=== PATIENT | male | born 1995 | race Caucasian/White ===

== ENCOUNTER 2017-03-07 11:44 | Day surgery (SDC) | payer BC ==
[2017-03-06 13:12] VITALS: BMI 28.3
[2017-03-07] MEDS ORDERED: BUPIVACAINE HCL/PF 0.5% (5MG/ML) 10 ML VIAL ONE (13:22)
[2017-03-07] MEDS ORDERED: ROCURONIUM BROMIDE 50 MG/5 ML VIAL ONE (13:33)
[2017-03-07] MEDS ORDERED: MIDAZOLAM HCL 2 MG/2 ML SINGLE DOSE VIAL ONE (13:33)
[2017-03-07] MEDS ORDERED: ceFAZolin SODIUM 1 GM VIAL IVPB ONE (14:20)
[2017-03-07] MEDS ORDERED: PROPOFOL 20 ML ONE (14:28)
[2017-03-07] MEDS ORDERED: NEOSTIGMINE METHYLSULFATE 0.5 MG/ML - 10 ML MDV ONE (15:36)
[2017-03-07] MEDS ORDERED: GLYCOPYRROLATE 0.2 MG/1 ML VIAL ONE (15:42)
--- NOTE | 2017-03-07 16:01 | HP ---
History & Physical Update - History History: No Change - Physical Physical: No Change - Assessment Assessment: No Change - Plan Plan: No Change (Robotic left inguinal hernia repair with mesh possible open)
--- NOTE | 2017-03-07 16:03 | OP ---
Operative Note - Note: Operative Date: 03/07/17 Pre-Operative Diagnosis: Left inguinal hernia Operation: Robotic left inguinal hernia repair with mesh Findings: Direct and indirect hernia defects Post-Operative Diagnosis: Same as Pre-op Surgeon: Chang Wong Cage Unloader: Keesha Packer Anesthesia: General Specimens Removed: None Estimated Blood Loss (mls): 5 Operative Report Dictated: Yes
[2017-03-07] MEDS ORDERED: ONDANSETRON 4 MG/2 ML VIAL ONE (16:04)
[2017-03-07] MEDS ORDERED: ONDANSETRON 4 MG/2 ML VIAL IVPB ONE (16:15)
--- NOTE | 2017-03-07 16:16 | SURG ---
Surgery Business Continuity Planning Director Note Business Continuity Planning Director: Keesha Packer PA-C Date of Service: 03/07/17 Diagnosis: Left inguinal hernia Procedure: Robotic left inguinal hernia repair with mesh I was present for the entirety of the operative procedure. For further detail, please refer to operative report. Visit type - Case Type Case Type: Scheduled Admission
[2017-03-07] MEDS ORDERED: oxyCODONE HCL 5 MG TABLET PO PRN (16:25)
[2017-03-07] MEDS ORDERED: ONDANSETRON 4 MG/2 ML VIAL IVPUSH PRN (16:25)
[2017-03-07] MEDS ORDERED: PROMETHAZINE HCL 25 MG/1 ML VIAL IVPUSH PRN (16:25)
[2017-03-07] MEDS ORDERED: LACTATED RINGERS SOLUTION 1,000 ML IV SCH (16:30)
[2017-03-07] MEDS ORDERED: oxyCODONE HCL 5 MG TABLET ONE (17:46)
[2017-03-07 18:57] VITALS: TEMP 98
[2017-03-07 19:41] VITALS: BP 136/69; PULSE 79
--- NOTE | 2017-03-08 18:13 | SPEC ---
DATE OF OPERATION: 03/07/2017 SURGEON: Clare Wong M.D. LIFT SLAB OPERATOR: Alejandra Escudero PREOPERATIVE DIAGNOSIS: Left inguinal hernia. POSTOPERATIVE DIAGNOSIS: Left inguinal hernia. Direct and indirect hernia defects. PROCEDURE: Robotic left inguinal hernia repair with mesh . SPECIMENS: None. ESTIMATED BLOOD LOSS: 5 mL. DRAINS: None. ANESTHESIA: GT. REASON FOR THE PROCEDURE: This is a 22-year-old gentleman who presented to the office for evaluation of left groin pain. On exam, he is found to have a left inguinal hernia . He was consented for a robotic possible open left inguinal hernia repair with mesh after discussing risks and options. RISKS AND BENEFITS: The risks and benefits of a Robotic, possible open left inguinal hernia repair, possible bilateral inguinal hernia repair with mesh were explained. These included bleeding, infection, recurrence of hernia, PA, DVT, PE, new hernia, mesh infection, injury to surrounding structures, including the colon, bowel, bladder, ureter, spermatic cord, spermatic vessels, vas deferens, vessel injury, nerve injury, testicular injury, including testicular atrophy and possible testicular loss, and as some of the possible complications. The patient understood and signed informed consent. DESCRIPTION OF PROCEDURE: The patient was placed supine on the operating table. The patient underwent general endotracheal intubation. A Juan catheter was inserted. The arms were tucked at the side and he was placed on a beanbag device. The abdomen was prepped and draped in the usual sterile fashion. A time-out was performed. A periumbilical incision was made and entrance into the abdominal cavity was obtained using an 8-mm robotic optical trocar under direct visualization with the laparoscope. Pneumoperitoneum was established. Subsequently, 2 additional 8-mm trocars were placed, one approximately 6 to 7 cm to the left of the umbilicus and one 6 to 7 cm to the right of the umbilicus. The patient was placed in steep Trendelenburg [id number] position. The robot was brought over the field and docked. Dissection was performed at the console. The peritoneum was opened using robotic Endo Deedee. The preperitoneal space over the left inguinal region was dissected. The epigastric vessels were identified and dissected toward the anterior abdominal wall. Dissection in the preperitoneal space was continued from the medial umbilical ligament towards the anterior-superior iliac spine. Medially, dissection was performed until Genaro's ligament and the pubis were identified. Lateral to this, the spermatic cord structures, including the vas deferens, were identified. The contents of the hernia sac were identified and dissected down to the retroperitoneum. At this point, hemostasis was identified. Again, all of the hernia content was noted to be completely dissected and noted to have no retraction back to its original position. A Symbotex mesh was then chosen, irrigated and inserted into the abdominal cavity to cover the entire myopectineal orifice. The mesh was secured medially at the pubis and superolaterally to the abdominal wall with sutures. The mesh was noted to be in good position. The hernia was again noted to be fully reduced and without any tension. At this point, the peritoneal flap was closed using a 2-0 V-Loc suture. Again, hemostasis was identified. All needles were removed from the field and the count was confirmed to be correct. The robotic instruments were removed. The robot was undocked and removed from the operative field. The patient was placed supine. Pneumoperitoneum was desufflated. All trocars were removed. All incision sites were irrigated and Marcaine was injected in all incision sites. Hemostasis was noted at all incision sites. All incision sites were closed using 4-0 Biosyn. Sterile dressings were applied. The Juan catheter was removed. The patient tolerated the procedure well and was transferred to the recovery room in stable condition. CLARE WONG M.D. 1 [id number]
== END 2017-03-07 19:41 | disposition home or self-care (01) ==
LOC: JASU-SURG 11:44
PROVIDERS: ATTEND Surgery
PROC: 8E0W4CZ Robotic Assisted Procedure of Trunk Region, Percutaneous Endoscopic Approach (ICD-10-PCS; 2017-03-07)
PROC: 0YU64JZ Supplement Left Inguinal Region with Synthetic Substitute, Percutaneous Endoscopic Approach (ICD-10-PCS; principal; 2017-03-07 13:00)
DX: K40.90 Unilateral inguinal hernia, without obstruction or gangrene, not specified as recurrent (principal)
CPT/HCPCS: 49650; S2900; 94760

== ENCOUNTER 2017-08-30 22:16 | Emergency (ER) | payer BC ==
[2017-08-30 22:22] VITALS: BP 133/68; PULSE 96; TEMP 98.8; BMI 29.0
--- NOTE | 2017-08-30 22:25 | PDOC ---
Rapid Medical Evaluation Chief Complaint: Injury Time Seen by Provider: 08/30/17 22:23 Medical Evaluation: Allergies Allergy/AdvReac Type Severity Reaction Status Date / Time No Known Drug Allergies Allergy Verified 03/07/17 12:23 Vital Signs Temp Pulse Resp BP Pulse Ox 98.8 F 96 H 18 133/68 98 08/30/17 22:20 08/30/17 22:20 08/30/17 22:20 08/30/17 22:20 08/30/17 22:20 Pt presents with complaint of : left ankle dislocation while playing basketball. " i felt it pop back in" c/o pain to left ankle now. On brief exam: Patient alert ox3, VSS, limited rom to left ankle I have ordered the following: xray Pt will go to the Emergency Dept for further workup 08/30/17 22:24
--- NOTE | 2017-08-31 00:38 | PDOC ---
History of Present Illness <Weston Chaudhry - Last Filed: 08/31/17 01:37> - General History Source: Patient - History of Present Illness Initial Comments: 08/31/17 00:38 22M present with 10/10 left ankle and leg pain after trauma while playing basketball. Patient was decribes the mechanism of injury as follows: he planted right foot down bur the momentum of his body upon the inertia of his lateral tendon caused it to break apart the fibula at the attachment site. 08/31/17 05:56 <Domingo Camacho - Last Filed: 08/31/17 06:06> - General Chief Complaint: Injury Stated Complaint: ANKLE INJURY Time Seen by Provider: 08/30/17 22:23 Past History <Weston Chaudhry Filed: 08/31/17 01:37> - Past Medical History Anemia: No Asthma: No Cancer: No Cardiac Disorders: No CVA: No COPD: No CHF: No Dementia: No Diabetes: No GI Disorders: No Disorders: No HTN: No Hypercholesterolemia: No Liver Disease: No Seizures: No Thyroid Disease: No - Surgical History Abdominal Surgery: No Appendectomy: No Cardiac Surgery: No Cholecystectomy: No Lung Surgery: No Neurologic Surgery: No Orthopedic Surgery: No - Suicide/Smoking/Psychosocial Hx Smoking History: Never smoked Have you smoked in the past 12 months: No Information on smoking cessation initiated: No Hx Alcohol Use: No Drug/Substance Use Hx: No Substance Use Type: None <Domingo Camacho Filed: 08/31/17 06:06> - Past Medical History Allergies/Adverse Reactions: Allergies Allergy/AdvReac Type Severity Reaction Status Date / Time No Known Drug Allergies Allergy Verified 03/07/17 12:23 Home Medications: Ambulatory Orders Ibuprofen 400 mg PO PRN PRN 01/01/12 Docusate Sodium [Colace -] 100 mg PO TID #90 capsule 03/07/17 Oxycodone HCl/Acetaminophen [Percocet 5-325 mg Tablet] 1 - 2 tab PO Q6H #28 tab MDD 4 03/07/17 Review of Systems - Review of Systems Able to Perform ROS?: Yes Is the patient limited Kenyan proficient: No Constitutional: No: Symptoms Reported HEENTM: No: Symptoms Reported Respiratory: No: Symptoms reported Cardiac (ROS): No: Symptoms Reported ABD/GI: No: Symptoms Reported : No: Symptoms Reported Musculoskeletal: Yes: Joint Swelling (left anfle), Muscle Pain Integumentary: No: Symptoms Reported Neurological: No: Symptoms reported <Domingo Camacho - Last Filed: 08/31/17 06:06> *Physical Exam - Vital Signs Last Vital Signs Temp Pulse Resp BP Pulse Ox 98.8 F 96 H 18 133/68 98 08/30/17 22:20 08/30/17 22:20 08/30/17 22:20 08/30/17 22:20 08/30/17 22:20 <Weston Chaudhry - Last Filed: 08/31/17 01:37> - Vital Signs Last Vital Signs Temp Pulse Resp BP Pulse Ox 98.8 F 96 H 18 133/68 98 08/30/17 22:20 08/30/17 22:20 08/30/17 22:20 08/30/17 22:20 08/30/17 22:20 - Physical Exam General Appearance: Yes: Nourished, Appropriately Dressed. No: Apparent Distress HEENT: positive: EOMI, JESSE, Normal ENT Inspection Neck: positive: Trachea midline, Normal Thyroid. negative: Tender Respiratory/Chest: positive: Lungs Clear, Normal Breath Sounds. negative: Chest Tender Cardiovascular: positive: Regular Rhythm, Regular Rate, S1, S2 Vascular Pulses: Dorsalis-Pedis (R): 2+, Doralis-Pedis (L): 2+ Gastrointestinal/Abdominal: positive: Normal Bowel Sounds, Flat, Soft. negative : Tender Musculoskeletal: negative: Decreased Range of Motion Extremity: positive: Normal Capillary Refill, Tender, Cyanosis, Pedal Edema, Swelling, Calf Tenderness. negative: Normal Range of Motion Integumentary: positive: Normal Color, Dry, Warm Neurologic: positive: director of slot operations II-XII NML intact, Fully Oriented, Alert, Normal Mood/ Affect, Normal Response, Motor Strength 5/5 <Domingo Camacho - Last Filed: 08/31/17 06:06> Procedures - Splinting Splint Location: Left: Ankle Pre-Proc Neuro Vasc Exam: normal Hand-Made Type: orthoglass Splint Type: Yes: Sugar Tong Post-Proc Neuro Vasc Exam: normal, unchanged from pre-exam Hakeem Bandage: 6" Complications: No Post splint xray: No <Domingo Camacho - Last Filed: 08/31/17 06:06> ED Treatment Course - Medications Given in the ED: ED Medications Discontinued Medications Generic Name Dose Route Start Last Admin Trade Name Luiz PRN Reason Stop Dose Admin Oxycodone/Acetaminophen 2 combo 08/31/17 00:39 08/31/17 00:50 Percocet 5/325 - PO 08/31/17 00:40 2 combo ONCE ONE Administration <Weston Chaudhry - Last Filed: 08/31/17 01:37> Medical Decision Making - Medical Decision Making 08/31/17 06:05 sugar tong splint placed percocet for pain crutches and orthopedic surgery referred for outpatient follow up. <Domingo Camacho - Last Filed: 08/31/17 06:06> *DC/Admit/Observation/Transfer <Weston Chaudhry - Last Filed: 08/31/17 01:37> - Discharge Dispostion Admit: No <Domingo Camacho - Last Filed: 08/31/17 06:06> Diagnosis at time of Disposition: Fracture of distal fibula - Discharge Dispostion Disposition: HOME - Referrals Referrals: Keny Freeman MD [Staff Physician] - Garth Sheth MD [Primary Care Provider] - - Patient Instructions Printed Discharge Instructions: Fracture, DI for Ankle Fracture Additional Instructions: Keep your leg in the splint at all times. Avoid bearing weight on your left leg , and use the crutches to get around. Call the number provided to make an appointment with an orthopedic surgeon within 1 week. If you experience worsening pain, swelling, numbness, or any other concerning symptoms, return to the ER immediately. - Post Discharge Activity
--- NOTE | 2017-08-31 01:37 | PDOC ---
Attending Attestation - Resident Resident Name: JaniceDomingo - ED Attending Attestation I have performed the following: I have examined & evaluated the patient, The case was reviewed & discussed with the resident, I agree w/resident's findings & plan, Exceptions are as noted - HPI HPI: 08/31/17 01:35 22 M with no PMH presents to ER with L ankle injury. Pt was playing basketball when he tripped and turned his ankle. He reports hearing a pop with immediate pain. Fell to ground without headstrike/LOC. Now complains of pain and swelling in L ankle with difficulty bearing weight. No other injury. - Physicial Exam PE: 08/31/17 01:36 "GENERAL: Awake, alert, and fully oriented, in no acute distress HEAD: No signs of trauma EYES: PERRLA, EOMI, sclera anicteric, conjunctiva clear ENT: Auricles normal inspection, hearing grossly normal, nares patent, oropharynx clear without exudates. Moist mucosa NECK: Nontender, no stepoffs, Normal ROM, supple, no lymphadenopathy, JVD, or masses LUNGS: Breath sounds equal, clear to auscultation bilaterally. No wheezes, and no crackles HEART: Regular rate and rhythm, normal S1 and S2, no murmurs, rubs or gallops ABDOMEN: Soft, nontender, normoactive bowel sounds. No guarding, no rebound. No masses EXTREMITIES: LLE with tenderness over distal fibula, ankle stable with no bony tenderness NEUROLOGICAL: Cranial nerves II through XII intact. 5/5 strength and sensation in all extremities, Normal speech, normal gait SKIN: Warm, Dry, normal turgor, no rashes or lesions noted. " - Medical Decision Making 08/31/17 01:36 22 M with L ankle pain. Concerning for distal fibula fx vs ankle fx. Neurovascularly intact distally. - XR - Pain control 08/31/17 02:01 XR with distal fibula fx. Pt to be placed in stirrup splint, NWB and f/u with ortho.
== END 2017-08-31 02:44 | disposition home or self-care (01) ==
LOC: JER 22:16
PROC: 2W3RX1Z Immobilization of Left Lower Leg using Splint (ICD-10-PCS; principal; 2017-08-30)
DX: S82.832A Other fracture of upper and lower end of left fibula, initial encounter for closed fracture (principal); Y93.67 Activity, basketball; Y92.310 Basketball court as the place of occurrence of the external cause
CPT/HCPCS: 73610-TC-LT; 73630-TC-LT; 99281-25

== ENCOUNTER 2017-09-05 11:50 | Day surgery (SDC) | payer BC ==
[2017-09-03 16:03] VITALS: BMI 29.0
--- NOTE | 2017-09-05 08:24 | HP ---
Satellite [facility] - Chief Complaint Chief Complaint: left ankle pain History of Present Illness: s/p fall, left ankle fracture History Source: Patient Limitations to Obtaining History: No Limitations - Past Medical History Allergies/Adverse Reactions: Allergies Allergy/AdvReac Type Severity Reaction Status Date / Time No Known Drug Allergies Allergy Verified 09/03/17 16:32 - Current Medications Current Medications: Home Medications Medication Instructions Recorded Ibuprofen 400 mg PO PRN PRN 01/01/12 Satellite Physical Exam - Physical Examination General Appearance: Well Nourished ENT: Clear Lung: Clear to auscultation Heart: Regular rate & rhythm Breasts: Soft Abdomen: Soft Extremities: No edema Satellite Impression/Plan - Impression/Plan Impression: left ankle bimalleolar fracture Operative Procedure: left ankle ORIF Date to be Performed: 09/05/17
[2017-09-05] MEDS ORDERED: ROPIVACAINE HCL 0.5% 30ML VIAL ONE (13:52)
[2017-09-05] MEDS ORDERED: MIDAZOLAM HCL 2 MG/2 ML SINGLE DOSE VIAL ONE ×3 (13:54→14:46)
[2017-09-05] MEDS ORDERED: PROPOFOL 20 ML ONE (14:46)
[2017-09-05] MEDS ORDERED: ceFAZolin SODIUM 1 GM VIAL ONE (14:52)
[2017-09-05] MEDS ORDERED: ceFAZolin SODIUM 1 GM VIAL IVPB ONE (14:55)
[2017-09-05] MEDS ORDERED: DEXAMETHASONE SOD PHOSPHATE 4 MG/1 ML VIAL ONE (16:08)
--- NOTE | 2017-09-05 16:18 | OP ---
Operative Note - Note: Operative Date: 09/05/17 Pre-Operative Diagnosis: left ankle fibular fracture and syndesmotic disruption Operation: left ankle ORIF Implants: Angelito Titanium low profile fibular plate and Arthrex Tight Rope anchor Surgeon: Keny Freeman Splitting Machine Feeder: Myles Leon Anesthesiologist/PROFILE SHAPER OPERATOR: Gael Ramirez Anesthesia: General Estimated Blood Loss (mls): 0 Drains, Volume Out (mls): 0 Blood Volume Replaced (mls): 0 Fluid Volume Replaced (mls): 1,000 Operative Report Dictated: Yes
[2017-09-05] MEDS ORDERED: oxyCODONE HCL 5 MG TABLET PO PRN (16:25)
[2017-09-05] MEDS ORDERED: PROMETHAZINE HCL 25 MG/1 ML VIAL IVPUSH PRN (16:25)
[2017-09-05] MEDS ORDERED: ONDANSETRON 4 MG/2 ML VIAL IVPUSH PRN (16:25)
[2017-09-05] MEDS ORDERED: LACTATED RINGERS SOLUTION 1,000 ML IV SCH (16:30)
[2017-09-05 17:07] VITALS: TEMP 97.6
[2017-09-05 18:29] VITALS: BP 118/65; PULSE 70
--- NOTE | 2017-09-06 13:46 | OP ---
DATE OF OPERATION: 09/05/2017 PREOPERATIVE DIAGNOSIS: Left ankle fibular fracture and syndesmotic disruption. POSTOPERATIVE DIAGNOSIS: Left ankle fibular fracture and syndesmotic disruption. PROCEDURE: Left ankle open reduction internal fixation. SURGEON: Tami Monson MD FUELS SALES REPRESENTATIVE: JAY Martin ANESTHESIA: Gael Ramirez and . DRAINS: None. COMPLICATIONS: None. SPECIMENS: None. BLOOD LOSS: None. BLOOD GIVEN: None. FLUID REPLACEMENT: 1000 mL. ANESTHESIA: Left regional block with LMA anesthesia. DESCRIPTION OF PROCEDURE: The patient was brought to the operating room. Peripheral IV placed. IV sedation given. Then 2 g of IV Ancef was given. A regional block was performed. LMA anesthesia was induced. Tourniquet was applied to the left upper thigh with ample padding. The left lower extremity was prepped and draped in a sterile fashion, elevated, and exsanguinated with an Esmarch bandage and tourniquet inflated to 275 mmHg. Mini C-arm was used to confirm the fracture level. A marking pen was utilized to amauri out an incision over the lateral aspect of the distal fibula. The incision was made with a No. 15 scalpel blade. Subcutaneous hemostasis deepened with Bovie cautery. Dissection was done down to the lateral aspect of the fibula. Self-retaining Weitlaner retractors were placed into the wound. Subperiosteal dissection was done exposing the fracture site was the fibula distal and proximal to the fracture site. The area was copiously irrigated and washed out and then curette used to remove hematoma debris. I then did a provisional reduction using an alligator forceps. It came together quite nicely. X-rays were taken. There seemed to be anatomic reduction, and the medial mortis and the syndesmosis both looked good. Next, a 3.5-mm lag screw was placed in a standard lag fashion. This was 20 mm in length crossing the fracture site. I removed the alligator forceps, and the fracture was held in an excellent position by the lag screw. Next, I put on a lateral distal fibular low-profile titanium Angelito plate. It was an 8-hole plate with 3 holes distal, 3 holes proximal, and 2 over the fracture site. It was bent in the appropriate way. K-wires held it in place, one nonlocking, bicortical, fully threaded screw was put distal to the fracture site and another one put proximal to the fracture holding the plate in place. It came together quite nicely. X-rays were taken. It all looked good. Therefore, a total of 3 screws proximal and 3 screws distal all bicortical to the fracture site. The middle 2 holes were left open where the fracture and the lag screw were. There were 2 butterfly fractures both inferior, posterior, and medial to the fibula at the fracture level; therefore, a No. 2 Ticron suture was utilized in a lasso fashion to hold them in place. It all came together quite nicely. Next, I stressed the syndesmosis in the ankle mortis, and I could not see any syndesmotic widened; however, the patient has a Damian C fracture. I think it is likely that there was some disruption of the syndesmosis, and therefore, an Arthrex TightRope was put across the syndesmosis superior to the joint line and inferior to the plate. This also came together quite nicely and documented its position with C-arm fluoroscopy. It cinched down nicely further stabilizing the syndesmosis. An insurance stitch was put in place, and the tail was cut. Final x-rays were taken in the AP, lateral, and multiple oblique planes including stressing into dorsiflexion. Next, 1 mL of Toole putty was placed around the fracture site, and 2-0 Vicryl was used to close the keep fascial layer. The deep dermal layer was closed with 2-0 Vicryl, and final skin reapproximation was done with a running subcuticular 3-0 V-Lock suture. The area was then washed and dried and covered with Steri-Strips, 4 x 4s, Webril, and a posterior Fiberglass splint was applied. It was then wrapped with an Hakeem bandage. The tourniquet was taken down after a total tourniquet time of 50 minutes. There were no complications during the case. The patient tolerated the procedure well and was brought to the ambulatory recovery room in stable condition. TAMI MONSON M.D. [id number]
== END 2017-09-05 18:29 | disposition home or self-care (01) ==
LOC: JASU-SURG 11:50
PROVIDERS: ATTEND Orthopaedic Surgery
PROC: 0QSK04Z Reposition Left Fibula with Internal Fixation Device, Open Approach (ICD-10-PCS; principal; 2017-09-05 13:00)
DX: S82.62XA Displaced fracture of lateral malleolus of left fibula, initial encounter for closed fracture (principal); X58.XXXA Exposure to other specified factors, initial encounter; Y93.9 Activity, unspecified; Y92.9 Unspecified place or not applicable; Y99.9 Unspecified external cause status
CPT/HCPCS: 76000-TC; 94760